=== PATIENT | female | born 1935 | race Caucasian/White ===

== ENCOUNTER 2019-05-22 12:35 | Emergency (ER) | payer MEDICARE, OTHER ==
[~2019-05-22] VITALS: Ht 167.6 cm; Wt 75.3 kg
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
[2019-05-22] MEDS ORDERED: MORPHINE SULFATE INJ 2 MG/ML DISP.SYRIN ONE (12:53)
--- NOTE | 2019-05-22 12:54 | NUR ---
health record technician at bedside
[2019-05-22] MEDS ORDERED: MORPHINE SULFATE INJ 2 MG/ML DISP.SYRIN IM ONE ×2 (13:00→15:00)
[2019-05-22] MEDS ORDERED: ACET-868 PO (13:21)
[2019-05-22] MEDS ORDERED: BISA10SU11 RC (13:21)
[2019-05-22] MEDS ORDERED: SERT50TA PO (13:21)
[2019-05-22] MEDS ORDERED: DONE10TA44 PO (13:21)
[2019-05-22] MEDS ORDERED: LOPE2CAP14 PO (13:21)
[2019-05-22] MEDS ORDERED: METO-357 PO (13:21)
[2019-05-22] MEDS ORDERED: ROSU10TA2 PO (13:21)
[2019-05-22] MEDS ORDERED: MELA1TAB9 PO (13:21)
[2019-05-22] MEDS ORDERED: SILV20CR13 TP (13:21)
[2019-05-22] MEDS ORDERED: POLY17PO4 PO (13:21)
[2019-05-22] MEDS ORDERED: LACT1CAP71 PO (13:21)
[2019-05-22] MEDS ORDERED: OMEG1CAP PO (13:21)
[2019-05-22] MEDS ORDERED: CHOL20004 PO (13:21)
[2019-05-22] MEDS ORDERED: DOCU-141 PO (13:21)
[2019-05-22] MEDS ORDERED: MAGN200T9 PO (13:21)
[2019-05-22] MEDS ORDERED: APIX2.5T PO (13:21)
[2019-05-22] MEDS ORDERED: QUET25TA PO (13:21)
[2019-05-22] MEDS ORDERED: VITA1TAB56 PO (13:21)
[2019-05-22] MEDS ORDERED: FLUO60SO3 TP (13:21)
[2019-05-22] MEDS ORDERED: IPRA42SP (13:21)
[2019-05-22] MEDS ORDERED: MAGN400O6 PO (13:21)
[2019-05-22] MEDS ORDERED: MEMA28CA5 PO (13:21)
[2019-05-22] MEDS ORDERED: METO25TA4 PO (13:21)
[2019-05-22] MEDS ORDERED: SODI88SP18 (13:21)
--- NOTE | 2019-05-22 13:48 | NUR ---
DR CERVANTES AT BEDSIDE
--- NOTE | 2019-05-22 14:36 | NUR ---
SPOKE TO ROGERS BARRON OF [facility]. ANDERSON STATED THAT THERE ARE CAREGIVERS THAT WOULD ASSIST THE PATIENT WITH ADL. MADE DR CERVANTES AWARE.
[2019-05-22] MEDS ORDERED: MORPHINE SULFATE INJ 4 MG/ML DISP.SYRIN ONE (14:40)
--- NOTE | 2019-05-22 14:40 | NUR ---
TECH AT BEDSIDE TO COAPTATION SPLINT WITH ELBOW SUPPORT
--- NOTE | 2019-05-22 14:51 | NUR ---
CIRCULATION CHECK DONE AFTER SPLINTING. + CMS. AWARE
[2019-05-22] MEDS ORDERED: ONDANSETRON 4 MG TAB.RAPDIS ONE (14:55)
[2019-05-22] MEDS ORDERED: ONDANSETRON 4 MG TAB.RAPDIS SL ONE (15:00)
--- NOTE | 2019-05-22 15:16 | NUR ---
Patient discharged [facility] in stable condition. Written and verbal after care instructions given. Patient verbalizes understanding of instruction. Patient will be brought back to [facility].
[2019-05-22 15:17] VITALS: BP 134/84
== END 2019-05-22 15:10 | disposition home or self-care (01) ==
LOC: ER 12:39
DX: S42.292A Other displaced fracture of upper end of left humerus, initial encounter for closed fracture (principal); R41.0 Disorientation, unspecified; I25.2 Old myocardial infarction; I48.91 Unspecified atrial fibrillation; Z91.040 Latex allergy status; Z79.899 Other long term (current) drug therapy; W18.39XA Other fall on same level, initial encounter; Y93.89 Activity, other specified; Y92.89 Other specified places as the place of occurrence of the external cause; Y99.8 Other external cause status
CPT/HCPCS: 29105; 73020; 73060; 96372 ×2; 99284; A6253; J2270 ×2; Q0162